=== PATIENT | female | born 1975 | race African-American/Black ===

== ENCOUNTER 2016-07-17 21:32 | Emergency (ER) | payer MEDICARE, MEDICAID ==
[~2016-07-17] VITALS: Ht 180.3 cm; Wt 118.0 kg
[2016-07-17] MEDS ORDERED: IBUPROFEN 600MG TABLET PO ONE (22:30)
[2016-07-17 22:54] LABS: BASOPHILS % 1.1 % (0.0-2.0); CARBON DIOXIDE 26 mEq/L (21-32); CHLORIDE 104 mEq/L (98-107); EOSINOPHILS % 1.1 % (0.0-5.0); ETHANOL BLOOD < 10 mg/dL; HEMATOCRIT. 35.9 % (36.0-48.0); HEMOGLOBIN. 12.4 g/dL (12.0-16.0); MEAN CORPUSCULAR HEMOGLOBIN 29.7 pg (28.0-32.0); MEAN CORPUSCULAR VOLUME 86.3 fL (81.0-99.0); MEAN PLATELET VOLUME 8.8 fl (7.4-10.4); MONOCYTES % 6.4 % (2.0-8.0); NEUTROPHILS % 75.4 % (40.0-76.0); PLATELET 321 x1000/uL (130-400); RED BLOOD CELL COUNT 4.16 mill/uL (4.2-5.4); RED CELL DISTRIBUTION WIDTH 13.5 % (11.6-14.6)
[2016-07-17 23:57] LABS: CLARITY URINE CLOUDY (CLEAR); COLOR URINE DARK YELLOW (YELLOW); GLUCOSE URINE NEGATIVE (NEGATIVE); KETONES URINE TRACE (NEGATIVE); LEUKOCYTE ESTERASE URINE TRACE (NEGATIVE); NITRITE URINE NEGATIVE (NEGATIVE); OCCULT BLOOD URINE NEGATIVE (NEGATIVE); PH URINE 5.5 (4.5-8.0); PROTEIN URINE 1+ (NEGATIVE)
[2016-07-18] MEDS ORDERED: LIDOCAINE HCL 1% 20ML VIAL (Pyxis) INJ INFIL ONE
[2016-07-18 00:10] LABS: *AMPHETAMINES SCREEN URINE NEGATIVE (NEGATIVE); *BARBITURATES SCREEN URINE NEGATIVE (NEGATIVE); *BENZODIAZEPINES SCREEN URINE NEGATIVE (NEGATIVE); *COCAINE SCREEN URINE NEGATIVE (NEGATIVE); CANNABINOID URINE SCREEN NEGATIVE (NEGATIVE); METHADONE URINE SCREEN NEGATIVE (NEGATIVE); OPIATES URINE SCREEN NEGATIVE (NEGATIVE); PHENCYCLIDINE URINE SCREEN NEGATIVE (NEGATIVE)
[2016-07-18] MEDS ORDERED: LIDOCAINE HCL 1% 20ML VIAL (Pyxis) INJ MC ONE (00:30)
[2016-07-18] MEDS ORDERED: BACITRACIN ZINC OINT UDPKT TOP ONE (00:30)
[2016-07-18] MEDS ORDERED: TETANUS, DIPHTHERIA, PERTUSSIS VAC/PF 0.5ML (>7YR OLD) IM ONE (01:15)
[2016-07-18 02:14] VITALS: BP 150/70
== END 2016-07-18 02:24 | disposition home or self-care (01) ==
LOC: ER 21:42
DX: S51.811A Laceration without foreign body of right forearm, initial encounter (principal); I10 Essential (primary) hypertension; J45.909 Unspecified asthma, uncomplicated; X99.1XXA Assault by knife, initial encounter; Y93.89 Activity, other specified; Y92.038 Other place in apartment as the place of occurrence of the external cause
CPT/HCPCS: 12031; 36415; 80053; 80305; 81001; 85025; 90471; 90715; 99284; G0482; J3490

== ENCOUNTER 2021-08-13 10:52 | Observation (INO) | payer OTHER, MEDICAID ==
[~2021-08-13] VITALS: Ht 165.1 cm; Wt 122.5 kg
[2021-08-13] MEDS ORDERED: LOSA100T3 PO (12:00)
[2021-08-13] MEDS ORDERED: HYDR25TA PO (12:01)
[2021-08-13] MEDS ORDERED: ABIL10 PO (12:02)
[2021-08-13] MEDS ORDERED: HALO5AMP3 IJ (12:03)
[2021-08-13] MEDS ORDERED: BUSP10TA4 PO (12:04)
== END 2021-08-13 14:00 | disposition home or self-care (01) ==
LOC: 8 EST LDRP 10:52 → 8EST NSY 11:08 → 8 EST A/PP 11:19
PROVIDERS: ADMIT Obstetrics & Gynecology; ATTEND Obstetrics & Gynecology
DX: O26.892 Other specified pregnancy related conditions, second trimester (principal); R10.9 Unspecified abdominal pain; O10.912 Unspecified pre-existing hypertension complicating pregnancy, second trimester; Z3A.26 26 weeks gestation of pregnancy
CPT/HCPCS: 76856; G0378; 99281

== ENCOUNTER 2022-01-11 11:45 | Emergency (ER) | payer OTHER ==
[~2022-01-11] VITALS: Ht 170.2 cm; Wt 105.0 kg
[~2022-01-11 11:45] MED LIST: ABIL10 PO; BUSP10TA4 PO; HALO5AMP3 IJ; HYDR25TA PO; LOSA100T3 PO
[2022-01-11 13:04] LABS: BASOPHILS % 0.8 % (0.0-2.0); EOSINOPHILS % 1.9 % (0.0-5.0); HEMATOCRIT. 36.8 % (36.0-48.0); HEMOGLOBIN. 12.2 g/dL (12.0-16.0); LYMPHOCYTES % 22.2 % (20.0-50.0); MEAN CORPUSCULAR HEMOGLOBIN 28.1 pg (28.0-32.0); MEAN CORPUSCULAR VOLUME 85.1 fL (81.0-99.0); MEAN PLATELET VOLUME 8.6 fl (7.4-10.4); MONOCYTES % 5.1 % (2.0-8.0); PLATELET 370 x1000/uL (130-400); RED BLOOD CELL COUNT 4.32 mill/uL (4.2-5.4); RED CELL DISTRIBUTION WIDTH 14.8 % (11.6-14.6)
[2022-01-11 13:21] LABS: CHLORIDE 105 mEq/L (98-107)
[2022-01-11 13:29] LABS: ETHANOL BLOOD < 10 mg/dL
[2022-01-11] MEDS ORDERED: TETANUS, DIPHTHERIA, PERTUSSIS VAC/PF 0.5ML (>10YR OLD) IM ONE (14:15)
[2022-01-11] MEDS ORDERED: LORAZEPAM 2MG/ML CPJ IM ONE (17:00)
[2022-01-11] MEDS ORDERED: HALOPERIDOL LACTATE 5MG/ML VIAL IM ONE (17:00)
[2022-01-11] MEDS ORDERED: DIPHENHYDRAMINE 50MG/ML VIAL IM ONE (17:15)
[2022-01-11] MEDS ORDERED: OLANZAPINE 10 MG/VIAL IM ONE (17:30)
[2022-01-12 05:30] VITALS: BP 156/82
== END 2022-01-12 05:30 | disposition home or self-care (01) ==
LOC: ER 11:45
DX: E87.6 Hypokalemia (principal); F23 Brief psychotic disorder; J45.909 Unspecified asthma, uncomplicated; I10 Essential (primary) hypertension; Z88.8 Allergy status to other drugs, medicaments and biological substances
CPT/HCPCS: 36415; 80053; 80307; 80320; 80329; 85025; 90471; 90715; 93005; 96372; 99285; J1200; J1630; J2060; J3490; G0480